=== PATIENT | male | born 1985 | race Two or more races ===

== ENCOUNTER 2018-03-10 16:37 | Emergency (ER) | payer OTHER ==
[~2018-03-10] VITALS: Ht 167.6 cm; Wt 163.7 kg
[2018-03-10 16:37] VITALS: BP 115/58
[2018-03-10] MEDS ORDERED: KETOROLAC TROMETH 60MG/2ML VIAL IM ONE (17:45)
[2018-03-10] MEDS ORDERED: NEOMYCIN-BACITRACIN-POLYM UNITDOSE PKG TOP OINT TOP ONE ×2 (18:15)
== END 2018-03-10 18:17 | disposition home or self-care (01) ==
LOC: ER 16:53
DX: S01.01XA Laceration without foreign body of scalp, initial encounter (principal); V49.9XXA Car occupant (driver) (passenger) injured in unspecified traffic accident, initial encounter; Y93.89 Activity, other specified; Y92.410 Unspecified street and highway as the place of occurrence of the external cause; Y99.8 Other external cause status
CPT/HCPCS: 12002; 70450; 96372; 99284; J1885

== ENCOUNTER → 2019-12-28 | Emergency (ER) | payer MEDICAID ==
[~2019-12-28] VITALS: Ht 172.7 cm; Wt 158.8 kg
[2019-12-28 15:32] LABS: Basophils # (auto) 0 uL; Basophils % (auto) 0.4 % (0.0-2.0); Eosinophils # (auto) 0.3 uL; Hematocrit 44.2 % (41.0-53.0); Hemoglobin 14.4 g/dL (13.5-17.5); Lymphocytes # (auto) 2.5 uL; Lymphocytes % (auto) 19.6 % (10.0-50.0); Mean Corpuscular Hemoglobin 27.4 pg (28.0-32.0); Mean Corpuscular Hgb Conc. 32.7 g/dL (32.0-36.0); Mean Corpuscular Volume 83.7 fL (80.0-100.0); Monocytes # (auto) 0.8 uL; Monocytes % (auto) 6.6 % (0.0-12.0); Neutrophils # (auto) 9.1 uL; Neutrophils % (auto) 71.4 % (37.0-80.0); Nucleated Red Blood Cells % 0.1 %; Platelet Count (auto) 226 10^3/uL (140-450); Red Blood Cells 5.27 10^6/uL (4.5-5.90); Red Cell Distribution Width 14.6 % (11.8-14.3); White Blood Cell 12.7 10^3/uL (4.4-10.8)
[2019-12-28 15:45] LABS: Albumin 3.5 g/dL (3.4-5.0); Anion Gap 4 (5-15); BUN/Creatinine Ratio 16.4; Blood Urea Nitrogen 12 mg/dL (7-18); Calcium 8.6 mg/dL (8.5-10.1); Carbon Dioxide 29 mmol/L (21-32); Chloride 105 mmol/L (98-107); GFR African American 160 mL/min; GFR Non-African American 132 mL/min; Glucose 102 mg/dL (74-106); Potassium 3.7 mmol/L (3.5-5.1); Sodium 138 mmol/L (136-145)
[2019-12-28 15:52] LABS: Alanine Aminotransferase 27 U/L (16-61); Alkaline Phosphatase 87 U/L (45-117); Aspartate Aminotransferase 5 U/L (15-37); Bilirubin, Total 0.4 mg/dL (0.2-1.0); Total Protein 7.5 g/dL (6.4-8.2)
[2019-12-28 16:45] VITALS: BP 124/80
== END | disposition home or self-care (01) ==
LOC: ER 14:46
DX: M54.2 Cervicalgia (principal); R11.2 Nausea with vomiting, unspecified; R20.0 Anesthesia of skin
CPT/HCPCS: 36415; 70450; 71046; 80053; 84484; 85025; 93005